=== PATIENT | male | born 1950 | race Hispanic/Latino ===

== ENCOUNTER 2017-12-29 14:09 | Outpatient (CLI) | payer MEDICARE ==
--- NOTE | 2017-12-29 14:51 | RAD ---
ONE VIEW PELVIS: History: Pain. Low back pain. FINDINGS: Sacroiliac joints are patent and symmetric. Sacral ala are preserved. Bony pelvis is intact. Contour of both femoral heads are maintained and the hip joint spaces are symmetric. IMPRESSION: Unremarkable one view pelvis. POS: [facility]
--- NOTE | 2017-12-29 15:40 | RAD ---
FIVE VIEWS LUMBAR SPINE: 12/29/17 HISTORY: Pain. COMPARISON: None. FINDINGS: Five views lumbar spine demonstrate five lumbar type vertebral bodies. Vertebral body height is maint ained. No fracture. Mild loss of disc space height. Osteophyte formation in the distal thoracic spine and the thoracolumbar junction. No significant spondylolisthesis in the neutral position. No spondyl olysis on the oblique projection. IMPRESSION: Mild degenerative changes throughout the lumbar spine. POS: [facility]
== END 2017-12-29 14:10 | disposition home or self-care (01) ==
LOC: NAV RAD 14:09
PROVIDERS: ATTEND Family Medicine
DX: M54.5 Low back pain (principal); M47.896 Other spondylosis, lumbar region
CPT/HCPCS: 72110; 72170

== ENCOUNTER 2019-11-20 19:44 | Emergency (ER) | payer MEDICARE, OTHER ==
[2019-11-20] MEDS ORDERED: Acetaminophen 500 MG TAB ONE (20:23)
[2019-11-20 20:46] LABS: ALT (SGPT) 23 U/L (8-55); AST (SGOT) 36 U/L (5-34); Alkaline Phosphatase 56 U/L (40-110); Anion Gap 15 mmol/L (10-20); BUN (Urea Nitrogen) 12 mg/dL (8.4-25.7); Bilirubin, Total 0.5 mg/dL (0.2-1.2); Calc. Creatinine Clearance 0 mL/min (70-130); Calcium 8.5 mg/dL (7.8-10.44); Carbon Dioxide 20 mmol/L (23-31); Chloride 101 mmol/L (98-107); Estimated GFR-MDRD 80; Globulin 3.4 g/dL (2.4-3.5); Glucose 128 mg/dL (80-115); Potassium 4.2 mmol/L (3.5-5.1); Protein, Total 7.4 g/dL (5.8-8.1); Sodium 132 mmol/L (136-145)
--- NOTE | 2019-11-20 20:58 | RAD ---
Exam: Chest one view HISTORY:Fever Comparison: 01/07/2015 FINDINGS: Cardiac silhouette: Normal Aorta: Unremarkable Pulmonary vessels: Normal Costophrenic angles: Clear LUNGS: Diminished lung volumes, due to poor inspiratory effort. Limited evaluation lung parenchyma al so due to motion Pneumothorax: None Osseous abnormalities: None IMPRESSION: 1. Limited evaluation due to motion and diminished lung sounds. 2. No definite acute cardiopulmonary process. 2 view chest radiograph beneficial.
[2019-11-20 20:59] LABS: Band 18 % (5-11); Hemoglobin 14.4 g/dL (14.0-18.0); Lymphocytes 25 % (21-51); MDiff Complete? YES; Mean Corpuscular HGB CONC 32.1 g/dL (32.0-36.0); Mean Corpuscular Hemoglobin 28.6 pg (27.0-31.0); Mean Corpuscular Volume 89.2 fL (78.0-98.0); Mean Platelet Volume 7.3 fL (7.4-10.4); Monocytes 6 % (0-10); Neutrophil 45 % (42-75); Platelet Count 135 thou/uL (130-400); Platelet Morphology Comment Appears Adequate; RBC Distribution Width 12.9 % (11.5-14.5); RBC Morphology Normal; Reactive Lymphocytes 6 % (0-10); Red Blood Cell (RBC) Count 5.02 mill/uL (4.70-6.10); White Blood Cell (WBC) Count 4.7 thou/uL (4.8-10.8)
[2019-11-20 21:14] LABS: Bilirubin Negative (Negative); Blood, Urine Trace (Negative); Clarity Clear (Clear); Glucose, Urine (Dipstick) Negative (Negative); Leukocyte Negative (Negative); Nitrite Negative (Negative); Protein, Urine (Dipstick) Negative (Neg-Trace); Urobilinogen 0.2 mg/dL (Less than 2)
[2019-11-20 21:15] LABS: Bacteria/HPF Rare-Few HPF (None Seen); RBC/HPF 0-3 HPF (0-3); Squamous Epithelial 0-3 HPF (0-3); WBC/HPF 0-3 HPF (0-3)
[2019-11-21 18:40] LABS: SARS-CoV-2 MS2 Positive; SARS-CoV-2 N Gene Positive; SARS-CoV-2 S Gene Positive; SARS-CoV-2 orf1ab Positive
== END 2019-11-20 21:40 | disposition home or self-care (01) ==
LOC: NAV ERS 19:44
DX: U07.1 COVID-19 (principal); R05 Cough; R06.02 Shortness of breath; E78.5 Hyperlipidemia, unspecified; I10 Essential (primary) hypertension
CPT/HCPCS: 71045; 80053; 83605; 84484; 85025; 87040; 87804 ×2; 93005; 99284; U0003; 81003; 81015; 87635

== ENCOUNTER 2019-11-22 18:38 | Emergency (ER) | payer MEDICARE, OTHER ==
[2019-11-22] MEDS ORDERED: Acetaminophen 500 MG TAB ONE (19:06)
[2019-11-22 19:31] LABS: ALT (SGPT) 20 U/L (8-55); AST (SGOT) 28 U/L (5-34); Albumin 3.7 g/dL (3.4-4.8); Alkaline Phosphatase 54 U/L (40-110); Anion Gap 14 mmol/L (10-20); BUN (Urea Nitrogen) 9 mg/dL (8.4-25.7); Band 4 % (5-11); Bilirubin, Total 0.4 mg/dL (0.2-1.2); Calc. Creatinine Clearance 0 mL/min (70-130); Calcium 8.3 mg/dL (7.8-10.44); Carbon Dioxide 21 mmol/L (23-31); Chloride 104 mmol/L (98-107); Estimated GFR-MDRD 90; Globulin 3.2 g/dL (2.4-3.5); Glucose 116 mg/dL (80-115); Hemoglobin 13.7 g/dL (14.0-18.0); Lymphocytes 22 % (21-51); MDiff Complete? YES; Mean Corpuscular HGB CONC 32.3 g/dL (32.0-36.0); Mean Corpuscular Hemoglobin 28.5 pg (27.0-31.0); Mean Corpuscular Volume 88.3 fL (78.0-98.0); Mean Platelet Volume 7.3 fL (7.4-10.4); Monocytes 11 % (0-10); Neutrophil 63 % (42-75); Platelet Count 164 thou/uL (130-400); Platelet Morphology Comment Appears Adequate; Potassium 4.2 mmol/L (3.5-5.1); Protein, Total 6.9 g/dL (5.8-8.1); RBC Distribution Width 12.8 % (11.5-14.5); RBC Morphology Normal; Red Blood Cell (RBC) Count 4.81 mill/uL (4.70-6.10); Sodium 135 mmol/L (136-145); White Blood Cell (WBC) Count 5.3 thou/uL (4.8-10.8)
--- NOTE | 2019-11-22 19:36 | RAD ---
Exam: Chest one view HISTORY:Shortness of breath.: 19 exposure. Chest pain. Comparison: 11/20/2019 FINDINGS: Cardiac silhouette: Normal Aorta: Unremarkable Pulmonary vessels: Normal Costophrenic angles: 6 possible small bilateral effusions. LUNGS: Diminished lung volumes, likely due to a poor inspiratory effort. Bibasilar infiltrates cannot be excluded. Pneumothorax: None Osseous abnormalities: None IMPRESSION: Bibasilar pleural and parenchymal changes. Continued surveillance is recommended.
== END 2019-11-22 20:30 | disposition home or self-care (01) ==
LOC: NAV ERS 18:38
DX: Z86.19 Personal history of other infectious and parasitic diseases (principal); E78.5 Hyperlipidemia, unspecified; I10 Essential (primary) hypertension
CPT/HCPCS: 71045; 80053; 83605; 85025